=== PATIENT | female | born 1980 | race African-American/Black ===

== ENCOUNTER 2017-11-29 16:34 | Emergency (ER) | payer OTHER ==
[~2017-11-29] VITALS: Ht 162.6 cm; Wt 115.7 kg
[2017-11-29 17:09] LABS: URINE BILIRUBIN NEGATIVE (Negative); URINE BLOOD 3+ (Negative); URINE CLARITY CLEAR; URINE COLOR YELLOW; URINE GLUCOSE-RANDOM* NEGATIVE (Negative); URINE KETONES NEGATIVE (Negative); URINE LEUKOCYTES 1+ (Negative); URINE NITRITE NEGATIVE (Negative); URINE PROTEIN (DIPSTICK) NEGATIVE (Negative); URINE UROBILINOGEN 0.2 E.U./dl (0.2-1.0)
[2017-11-29 17:15] LABS: CASTS None Seen /LPF (None Seen); CRYSTALS None Seen /LPF (None Seen); SQUAMOUS >10 Many /LPF (0-3); URINE WBC 6-15 Few /HPF (0-5)
[2017-11-29 17:16] LABS: BACTERIA 1-9 Few /HPF (None Seen); URINE RBC 3-10 Few /HPF (0-2)
[2017-11-29 17:22] LABS: ABSOLUTE NEUTROPHILS 6.5 thou/uL (1.4-8.2); BASOPHILS 1.3 % (0.0-2.0); HEMATOCRIT 38.8 % (37.0-47.0); HEMOGLOBIN 12.6 gm/dL (12.0-15.0); LYMPHOCYTES 20.7 % (24.0-44.0); MCH 26.5 pg (26.0-34.0); MCHC 32.4 g/dL (28.0-37.0); MCV 81.7 fL (80.0-100.0); PLATELET COUNT 270 thou/uL (150-400); RBC 4.75 mil/uL (4.20-5.00); RDW 16.8 % (10.5-14.5); WBC 9.4 thou/uL (4.0-11.0)
[2017-11-29 17:23] LABS: CALCIUM 9.2 mg/dL (8.5-10.1); CREATININE 0.9 mg/dL (0.6-1.0); POTASSIUM 4.1 mmol/L (3.5-5.1)
[2017-11-29 17:28] LABS: ALBUMIN 3.2 g/dL (3.4-5.0); TOTAL BILIRUBIN 0.3 mg/dL (<0.1-1.0)
[2017-11-29] MEDS ORDERED: MOBIC15 MG PO ×2 (17:55→18:11)
[2017-11-29] MEDS ORDERED: BENTYL 20 MG TA20 M1 PO ×2 (17:55→18:11)
[2017-11-29] MEDS ORDERED: PHENERGAN 25 MG25 M1 PO ×2 (17:55→18:11)
== END 2017-11-29 18:15 | disposition home or self-care (01) ==
LOC: ER 16:34
PROVIDERS: Physician Assistant
DX: K80.50 Calculus of bile duct without cholangitis or cholecystitis without obstruction (principal); F17.210 Nicotine dependence, cigarettes, uncomplicated

== ENCOUNTER 2017-12-25 11:35 | Emergency (ER) | payer OTHER ==
[~2017-12-25] VITALS: Ht 162.6 cm; Wt 81.7 kg
[~2017-12-25 11:35] MED LIST: BENTYL 20 MG TA20 M1 PO; MOBIC15 MG PO; PHENERGAN 25 MG25 M1 PO
[2017-12-25] MEDS ORDERED: NAPROSYN500 MG PO (11:47)
[2017-12-25 11:59] VITALS: BP 131/87
== END 2017-12-25 12:01 | disposition home or self-care (01) ==
LOC: ER 11:35
DX: M79.602 Pain in left arm (principal); F17.210 Nicotine dependence, cigarettes, uncomplicated